=== PATIENT | male | born 1970 | race Caucasian/White ===

== ENCOUNTER 2017-03-01 20:43 | Inpatient (IN) ==
[2017-03-01 21:29] LABS: Basophils # 0.1 K/mcL (0.0-0.2); Basophils % 0.4 %; Eosinophils % 0.1 %; Hematocrit 44.9 % (37.5-50.1); Hemoglobin 14.7 g/dL (12.9-16.9); Immature Granulocytes % 0.3 % (0-4); Lymphocytes # 1.5 K/mcL (0.6-4.6); Lymphocytes % 10.8 %; Mean Corpuscular HGB Conc 32.7 g/dL (31.6-35.5); Mean Corpuscular Volume 88.6 fL (83.0-100.0); Mean Platelet Volume 8.6 fL (9.4-12.4); Monocytes # 1.3 K/mcL (0.0-1.3); Monocytes % 9.3 %; Neutrophils # 10.6 K/mcL (1.6-8.9); Platelet Count 270 K/mcL (140-400); Red Blood Count 5.07 M/mcL (4.19-5.50); Red Cell Distribution Width 13.1 % (11.5-14.5); Segmented Neutrophils % 79.1 %
[2017-03-01 21:38] LABS: BUN/Creatinine Ratio 17 (6-26); Blood Urea Nitrogen 16 mg/dL (8-26); Calcium 9.6 mg/dL (8.6-10.8); Carbon Dioxide 23 mEq/L (19-29); Chloride 105 mEq/L (98-109); Glucose 105 mg/dL (70-99); Osmolality,Calculated 286 (280-300); Potassium 4.4 mEq/L (3.5-4.5); Sodium 137 mEq/L (136-145); eGFR For African Americans > 60 (> 60); eGFR For Non-African Americans > 60 (> 60)
[2017-03-01] MEDS ORDERED: Ipratropium/Albuterol Neb 3 ML IH ONE ×2 (22:38→23:15)
[2017-03-01] MEDS ORDERED: Ipratropium/Albuterol Neb 3 ML ONE (23:12)
--- NOTE | 2017-03-01 23:16 | Emergency Department Note ---
Disposition Clinical Impression: Acute exacerbation of chronic obstructive airways disease Disposition: Still a Patient Condition: Good Referrals: Emely Zamora DO [Primary Care Provider] - Forms: ED Satisfaction Letter General Adult HPI - General Chief complaint: ED Shortness of Breath/Dyspnea Stated complaint: "SOB" Time Seen by Provider: 03/01/17 22:07 Source: patient Mode of arrival: ambulatory Limitations: no limitations Nursing Notes Reviewed: Yes Vital Signs Reviewed: Yes - History of Present Illness HPI Narrative: 47-year-old male with past medical history of COPD presenting to the emergency department with chief complaint of shortness of breath. He states last night he started having increased shortness of breath and cough. As significant kyphosis of the thoracic spine. He states he uses albuterol inhaler at home but that did not help much. He denies fevers, chest pain. No sick contacts. Patient has had congestion, productive cough, and increased shortness of breath since last evening. Pain Scale: 6 - Related Data Previous Rx's Medication Instructions Recorded Ipratropium/Albuterol Neb [Duoneb] 3 ml IH Q4HR PRN #20 vial.neb 04/05/16 Levofloxacin [Levaquin] 750 mg PO DAILY #6 tablet 04/05/16 predniSONE [PredniSONE] 60 mg PO ONCE #12 tablet 04/05/16 Allergies Allergy/AdvReac Type Severity Reaction Status Date / Time No Known Allergies Allergy Verified 03/01/17 20:51 All systems ED: reviewed and negative except as stated. Constitutional: Denies: fever, chills Eyes: Reports: as per HPI ENT ED: Reports: as per HPI Cardiovascular: Denies: chest pain, palpitations Respiratory: Reports: cough, dyspnea, sputum production. Denies: wheezes Gastrointestinal: Denies: abdominal pain, nausea, vomiting Genitourinary: Reports: as per HPI Musculoskeletal: Reports: as per HPI Integumentary: Reports: as per HPI Neurological: Denies: weakness, numbness, paresthesias Psychiatric: Reports: as per HPI Endocrine: Reports: as per HPI Hematological/Lymphatic: Reports: as per HPI Allergic/Immunologic: Reports: as per HPI Past Medical History - Past Medical History Attestation: Yes The following information was validated with the patient. Medical history: Reports: COPD, hyperlipidemia, hypertension Psychiatric history: Reports: no psych history - Social History Smoking Status: Current every day smoker Alcohol use: Reports: none Drug use: Reports: none Physical Exam - General Limitations: no limitations General appearance: alert, in no apparent distress - Head Head exam: atraumatic, normocephalic - Eye Eye exam: Present: normal appearance - Chest Chest inspection: Present: normal inspection, symmetric chest wall rise. Absent : tenderness - Respiratory Respiratory exam: Present: other (Rhonchi noted bilaterally) - Cardiovascular Cardiovascular exam: Present: regular rate, normal heart sounds - Abdominal Exam Abdominal exam: Present: soft, Non-Tender - Extremities Exam Extremities exam: Present: normal inspection, full ROM - Back Exam Back exam: Present: other (severe kyphosis) - Neurological Exam Neurological exam: Present: alert, oriented X3 - Psychiatric Psychiatric exam: Present: normal affect, normal mood - Skin Skin exam: Present: warm, intact Course Course Narrative: 47-year-old male presenting to the emergency Department for chief complaint of shortness of breath. He states it started last night. He has a history of COPD. He also has severe kyphosis noted on exam with possible respiratory compromise. After 3 DuoNeb's patient states he feels better but oxygen saturations have dropped to 88%. Patient with stable oxygen saturations while on 2 L of nasal cannula. Patient does not wear oxygen at home. We will complete albuterol nebulizer treatments at this time and reevaluate patient to determine admission versus discharge. Vital Signs Temperature 99.4 F 03/01/17 20:47 Pulse Rate 194 03/01/17 20:47 Respiratory Rate 16 03/01/17 20:47 Blood Pressure 124/78 03/01/17 20:47 O2 Sat by Pulse Oximetry 92 03/01/17 20:47 Temperature 99.4 F 03/01/17 20:47 Pulse Rate 84 03/01/17 22:44 Respiratory Rate 18 03/01/17 23:18 Blood Pressure 128/85 03/01/17 22:44 O2 Sat by Pulse Oximetry 95 03/01/17 23:18 Oxygen Delivery Oxygen Delivery Nasal Cannula Medical Decision Making - Medical Records Medical records reviewed: Yes I reviewed the patient's medical records. - Lab Data Result diagrams: 03/01/17 21:13 03/01/17 21:13 Lab Results 03/01/17 03/01/17 03/01/17 Range/Units 21:13 21:13 21:13 WBC 13.4 H (4.3-11.1) K/mcL RBC 5.07 (4.19-5.50) M/mcL Hgb 14.7 (12.9-16.9) g/dL Hct 44.9 (37.5-50.1) % MCV 88.6 (83.0-100.0) fL MCH 29.0 (28.0-33.3) pg MCHC 32.7 (31.6-35.5) g/dL RDW 13.1 (11.5-14.5) % Plt Count 270 (140-400) K/mcL MPV 8.6 L (9.4-12.4) fL Immature Gran % 0.3 (0-4) % Seg Neutrophils % 79.1 % Lymphocytes % 10.8 % Monocytes % 9.3 % Eosinophils % 0.1 % Basophils % 0.4 % Neutrophils # 10.6 H (1.6-8.9) K/mcL Lymphocytes # 1.5 (0.6-4.6) K/mcL Monocytes # 1.3 (0.0-1.3) K/mcL Eosinophils # 0.0 (0.0-0.6) K/mcL Basophils # 0.1 (0.0-0.2) K/mcL Sodium 137 (136-145) mEq/L Potassium 4.4 (3.5-4.5) mEq/L Chloride 105 (98-109) mEq/L Carbon Dioxide 23 (19-29) mEq/L BUN 16 (8-26) mg/dL Creatinine 0.94 (0.72-1.25) mg/dL Est GFR ( Amer) > 60 (> 60) Est GFR (Non-Af Amer) > 60 (> 60) BUN/Creatinine Ratio 17 (6-26) Glucose 105 H (70-99) mg/dL Calculated Osmolality 286 (280-300) Calcium 9.6 (8.6-10.8) mg/dL Troponin I 0.01 (0-0.03) ng/mL - Radiology Data Radiology results reviewed: Yes I reviewed the patient's radiology results. Attestation Statement - Attestation Attestation: I examined this patient and my medical decision-making was reviewed with the Resident Physician. I agree with the documented findings, disposition and treatment plan as described except to the extent set forth below. Minimal improvement after steroids, 3 duonebs, 3 albuterol with 3 more albuterol running. No pneumonia on imaging. Sats 92-94% on supplemental O2, not on O2 at home. Hospitalist accepted for admission.
[2017-03-02] MEDS ORDERED: Albuterol 2.5 MG/3 ML NEBULIZER IH STA ×2 (00:04→00:15)
[2017-03-02] MEDS ORDERED: predniSONE 20 MG TABLET PO STA (00:04)
[2017-03-02] MEDS ORDERED: levoFLOXacin 500 MG TABLET PO STA (01:34)
--- NOTE | 2017-03-02 02:33 | Event Note ---
Date of Encounter: 03/02/17 Time of Encounter: 02:32 Patient seen and examined with medical laboratory scientist. Patient with history of COPD not on home multiple presents with 2 days of increasing shortness of breath. Acute COPD exacerbation. He is requiring 4 L of oxygen nasally. No pneumonia on x-ray. Inpatient admission. Patient is full code
--- NOTE | 2017-03-02 04:06 | Internal Med History&Physical ---
Date of Encounter: 03/02/17 Time of Encounter: 01:45 Assessment and Plan (1) Cough Current visit: Yes Status: Acute Patient has a nonproductive cough. -He feels as though he has mucus caught in his throat, unable to bring it up. -He develops chest pain with this cough. -Mucinex has been ordered. -He has also been started on azithromycin 500 mg IV (2) Acute exacerbation of chronic obstructive airways disease Current visit: Yes Status: Acute Patient presented with shortness of breath and an O2 sat of 92. -CXR shows no signs of an acute process -Continue on oxygen, 4 liters. -Prenisone, 40 mg Q6 hr -Duonebs q4hr (3) Leukocytosis Current visit: Yes Status: Acute Patient presented with an elevated white count of 13.4. -Started on Azithromycin 500 mg IV Qualifiers: Qualified Code(s): D72.829 - Elevated white blood cell count, unspecified (4) Tobacco abuse Current visit: Yes Status: Acute Patient smokes one half pack of cigarettes per day. -Previously smoked 2 packs per day. -Currently on Chantix. Internal Medicine - H&P: HPI Admitted From: Home History of present illness: Mr. Rasmussen is a 47 year old male who was seen and examined at bedside this morning. Patient presents to the emergency department with chief complaint of shortness of breath of 2 days duration. Patient states that 2 days ago, he began feeling short of breath and developed a nonproductive cough, and that his condition has progressively worsened. Patient denied having any fevers or chest pain, and has not had any sick contacts. Patient does however have a pain in his chest when he coughs very hard. He admits to being a smoker. He currently smokes one half pack per day. He is currently on Chantix, and is trying to cut back. He had previously been smoking 2 packs per day. On admission to the hospital, patient's vital signs are as follows: Temperature was 99.4, pulse was 194, respiratory rate was 16, blood pressure was 124/78, and O2 saturation was 92. Patient was placed on 4 L of oxygen, and his O2 saturation increased to 95. Patient's pulse decreased to 84. He has been given several treatments of DuoNeb's, and these have been effective for the patient's condition. Patient does have an elevated white count at 13.4. Chest x-ray was performed, did not show any acute findings. Chest x-ray did reveal hyperinflation and scarring, as well as a calcified granuloma in the right middle lung field. EKG was ordered as well. Patient is currently in no distress, and states that he does feel slightly better. He is still short of breath and is still shaking, and does have a nonproductive cough. Past Med Surg Social Fam HX - Past Medical History Medical history: COPD, hyperlipidemia, hypertension Psychiatric history: no psych history - Social History Smoking Status: Current every day smoker Packs per day: 0.5 Smokeless Tobacco Status: No Alcohol use: none Drug use: none Internal Medicine - H&P: Meds Ipratropium/Albuterol Neb [Duoneb] 3 ml IH Q4HR PRN #20 vial.neb 04/05/16 [Rx] Levofloxacin [Levaquin] 750 mg PO DAILY #6 tablet 04/05/16 [Rx] predniSONE [PredniSONE] 60 mg PO ONCE #12 tablet 04/05/16 [Rx] 3 Allergy/AdvReac Type Severity Reaction Status Date / Time No Known Allergies Allergy Verified 03/01/17 20:51 All Systems PM: A 10-system review of systems was performed and is negative for pertinent findings except as documented above in the HPI. - Constitutional Vitals: Temp Pulse Resp BP Pulse Ox 99.1 F 130 26 111/66 93 03/02/17 02:52 03/02/17 02:52 03/02/17 02:52 03/02/17 02:52 03/02/17 02:52 - Respiratory Respiratory exam: Present: rales, respiratory distress, rhonchi, wheezes - Cardiovascular Cardiovascular exam: Present: RRR, +S1, +S2. Absent: diastolic murmur, gallop, rubs, systolic murmur Internal Med - H&P Results - Labs CBC & Chem 7: 03/01/17 21:13 03/01/17 21:13
[2017-03-02] MEDS: Ipratropium/Albuterol Neb 3 ML IH SCH ×6 (04:44→23:34)
[2017-03-02] MEDS: Azithromycin 500 MG in D5% in Water 250 ML IVPB SCH (04:46)
[2017-03-02] MEDS: methylPREDNISolone 125 MG/2 ML VIAL IVP SCH ×4 (05:55→23:59)
[2017-03-02] MEDS ORDERED: predniSONE 20 MG TABLET PO SCH (08:00)
[2017-03-02] MEDS: *HR* Heparin 5,000 UNIT/ML VIAL SQ SCH ×2 (15:08→20:48)
--- NOTE | 2017-03-02 18:57 | Electrocardiograph Report ---
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
--- NOTE | 2017-03-02 19:35 | Internal Med Progress Note ---
Date of Encounter: 03/02/17 Time of Encounter: 14:00 - Assessment and plan (1) Acute exacerbation of chronic obstructive airways disease Current Visit: Yes Status: Acute Assessment and plan: Continue Prednisone. O2 supplementation, weaning. (2) Tobacco abuse Current Visit: Yes Status: Acute Assessment and plan: Discussed cessation w patient - Subjective Interval history: Feeling significantly better. Still on O2 which he does not require at home. Denies cp, n/v, diaphoresis, fevers/chills. - Constitutional Vitals: Temp Pulse Resp BP Pulse Ox 98.0 F 93 16 118/76 93 03/02/17 18:55 03/02/17 18:55 03/02/17 18:55 03/02/17 18:55 03/02/17 18:55 General appearance: Present: A&O X 3, no acute distress, answers questions appropriately - Head Head exam: Present: atraumatic, normocephalic - Respiratory Respiratory exam: Present: decreased breath sounds, wheezes. Absent: accessory muscle use, prolonged expiratory phase, rales - Cardiovascular Cardiovascular exam: Present: RRR, +S1, +S2. Absent: diastolic murmur, gallop, rubs, systolic murmur - Extremities Exam Extremities exam: Present: warm, radial pulses palpable and symmetrical. Absent : calf tenderness, cyanotic, pedal edema Internal Medicine: Result - Labs CBC & Chem 7: 03/01/17 21:13 03/01/17 21:13 Consult Discharge Plan - Plan Referrals: Emely Zamora DO [Primary Care Provider] -
[2017-03-03] MEDS: Ipratropium/Albuterol Neb 3 ML IH SCH ×6 (03:08→23:12)
[2017-03-03] MEDS: Azithromycin 500 MG in D5% in Water 250 ML IVPB SCH (04:18)
[2017-03-03 05:00] LABS: Basophils % 0.1 %; Hematocrit 40.8 % (37.5-50.1); Hemoglobin 13.6 g/dL (12.9-16.9); Immature Granulocytes % 0.8 % (0-4); Lymphocytes # 1.4 K/mcL (0.6-4.6); Mean Corpuscular HGB Conc 33.3 g/dL (31.6-35.5); Mean Corpuscular Hemoglobin 28.7 pg (28.0-33.3); Mean Corpuscular Volume 86.1 fL (83.0-100.0); Mean Platelet Volume 8.8 fL (9.4-12.4); Monocytes # 0.7 K/mcL (0.0-1.3); Monocytes % 4.1 %; Neutrophils # 13.7 K/mcL (1.6-8.9); Platelet Count 286 K/mcL (140-400); Red Blood Count 4.74 M/mcL (4.19-5.50); Red Cell Distribution Width 12.8 % (11.5-14.5)
[2017-03-03 05:18] LABS: BUN/Creatinine Ratio 20 (6-26); Blood Urea Nitrogen 15 mg/dL (8-26); Calcium 9.3 mg/dL (8.6-10.8); Carbon Dioxide 19 mEq/L (19-29); Chloride 108 mEq/L (98-109); Glucose 196 mg/dL (70-99); Osmolality,Calculated 290 (280-300); Potassium 3.7 mEq/L (3.5-4.5); Sodium 137 mEq/L (136-145); eGFR For African Americans > 60 (> 60); eGFR For Non-African Americans > 60 (> 60)
[2017-03-03] MEDS: methylPREDNISolone 125 MG/2 ML VIAL IVP SCH ×4 (05:48→23:27)
[2017-03-03] MEDS: *HR* Heparin 5,000 UNIT/ML VIAL SQ SCH ×3 (05:48→20:27)
--- NOTE | 2017-03-03 19:09 | Internal Med Progress Note ---
Date of Encounter: 03/03/17 Time of Encounter: 09:30 - Assessment and plan (1) Acute exacerbation of chronic obstructive airways disease Current Visit: Yes Status: Acute Assessment and plan: Patient clinically looked well, but with ambulating he was noted to desaturate despite adequate management. He currently qualifies for home O2. is arranging for this. Anticipate discharge tomorrow. (2) Oxygen desaturation Current Visit: Yes Status: Acute Assessment and plan: as above (3) Tobacco abuse Current Visit: Yes Status: Acute Assessment and plan: Re-discussed cessation with patient today. He noted that he is actively trying to quit and discusses with his primary care physician. - Subjective Interval history: Feeling significantly better. Still on O2 which he did not require at prior to admission. Denies cp, n/v, diaphoresis, fevers/chills. - Constitutional Vitals: Temp Pulse Resp BP Pulse Ox 98.1 F 74 14 119/72 97 03/03/17 18:32 03/03/17 18:32 03/03/17 18:32 03/03/17 18:32 03/03/17 18:32 General appearance: Present: A&O X 3, no acute distress, answers questions appropriately - Respiratory Respiratory exam: Present: wheezes. Absent: accessory muscle use, chest wall tenderness, decreased breath sounds, prolonged expiratory phase, rales - Cardiovascular Cardiovascular exam: Present: RRR, +S1, +S2. Absent: diastolic murmur, gallop, rubs, systolic murmur - Extremities Exam Extremities exam: Present: warm, radial pulses palpable and symmetrical. Absent : calf tenderness, cyanotic, pedal edema Internal Medicine: Result - Labs CBC & Chem 7: 03/03/17 04:39 03/03/17 04:39 Labs: Short CBC 03/03/17 Range/Units 04:39 WBC 16.0 H (4.3-11.1) K/mcL Hgb 13.6 (12.9-16.9) g/dL Hct 40.8 (37.5-50.1) % Plt Count 286 (140-400) K/mcL Neutrophils # 13.7 H (1.6-8.9) K/mcL BMP 03/03/17 04:39 Sodium 137 Potassium 3.7 Chloride 108 Carbon Dioxide 19 BUN 15 Creatinine 0.75 Glucose 196 H Calcium 9.3 Consult Discharge Plan - Plan Referrals: Emely Zamora DO [Primary Care Provider] -
[2017-03-04] MEDS: Ipratropium/Albuterol Neb 3 ML IH SCH ×3 (03:42→11:28)
[2017-03-04 05:11] LABS: Basophils % 0.1 %; Hematocrit 41.5 % (37.5-50.1); Hemoglobin 13.9 g/dL (12.9-16.9); Immature Granulocytes % 0.9 % (0-4); Lymphocytes # 1.9 K/mcL (0.6-4.6); Lymphocytes % 10.8 %; Mean Corpuscular HGB Conc 33.5 g/dL (31.6-35.5); Mean Corpuscular Hemoglobin 28.9 pg (28.0-33.3); Mean Corpuscular Volume 86.3 fL (83.0-100.0); Monocytes # 0.6 K/mcL (0.0-1.3); Monocytes % 3.7 %; Neutrophils # 14.5 K/mcL (1.6-8.9); Platelet Count 322 K/mcL (140-400); Red Blood Count 4.81 M/mcL (4.19-5.50); Red Cell Distribution Width 13.2 % (11.5-14.5); Segmented Neutrophils % 84.5 %
[2017-03-04] MEDS: methylPREDNISolone 125 MG/2 ML VIAL IVP SCH ×2 (05:13→12:04)
[2017-03-04] MEDS: *HR* Heparin 5,000 UNIT/ML VIAL SQ SCH ×2 (05:13→12:04)
[2017-03-04] MEDS: Azithromycin 500 MG in D5% in Water 250 ML IVPB SCH (05:13)
[2017-03-04 05:26] LABS: BUN/Creatinine Ratio 19 (6-26); Blood Urea Nitrogen 14 mg/dL (8-26); Calcium 9.2 mg/dL (8.6-10.8); Carbon Dioxide 21 mEq/L (19-29); Chloride 107 mEq/L (98-109); Glucose 162 mg/dL (70-99); Osmolality,Calculated 290 (280-300); Potassium 3.7 mEq/L (3.5-4.5); Sodium 138 mEq/L (136-145); eGFR For African Americans > 60 (> 60); eGFR For Non-African Americans > 60 (> 60)
[2017-03-04 11:38] VITALS: BP 119/75
--- NOTE | 2017-03-04 11:38 | Discharge Summary ---
Date of Encounter: 03/04/17 Time of Encounter: 11:37 - Discharge Diagnosis (1) Acute exacerbation of chronic obstructive airways disease Priority: Primary Status: Acute (2) Oxygen desaturation Priority: Secondary Status: Acute (3) Tobacco abuse Priority: Secondary Status: Acute - Discharge Medications Home Medications: Atorvastatin [Lipitor] 40 mg PO HS 03/02/17 [History] Fluticasone/Vilanterol [Breo Ellipta 100-25 Mcg INH] 1 puff IH DAILY 03/02/17 [ History] Montelukast [Singulair] 10 mg PO DAILY 03/02/17 [History] Allergies/Adverse Reactions: 3 Allergy/AdvReac Type Severity Reaction Status Date / Time No Known Allergies Allergy Verified 03/01/17 20:51 Date of admission: Patient presents to the emergency department with chief complaint of shortness of breath of 2 days duration. Patient states that 2 days ago, he began feeling short of breath and developed a nonproductive cough, and that his condition has progressively worsened. Patient denied having any fevers or chest pain, and has not had any sick contacts. Patient does however have a pain in his chest when he coughs very hard. He admits to being a smoker. He currently smokes one half pack per day. He is currently on Chantix, and is trying to cut back. He had previously been smoking 2 packs per day. On admission to the hospital, patient's vital signs are as follows: Temperature was 99.4, pulse was 194, respiratory rate was 16, blood pressure was 124/78, and O2 saturation was 92. Patient was placed on 4 L of oxygen, and his O2 saturation increased to 95. Patient's pulse decreased to 84. He has been given several treatments of DuoNeb 's, and these have been effective for the patient's condition. Patient does have an elevated white count at 13.4. Chest x-ray was performed, did not show any acute findings. Chest x-ray did reveal hyperinflation and scarring, as well as a calcified granuloma in the right middle lung field. EKG was ordered as well. Patient is currently in no distress, and states that he does feel slightly better. He is still short of breath and is still shaking, and does have a nonproductive cough. Primary care physician: Emely Zamora DO Consults: 03/03/17 11:57 Consult to Paint Formulator [CONS] Routine Reason for SW Consult: oxygen/ dishcarge planning Discharging clinician: Rip Cruz - Patient Status Disposition: Home, Self-Care Condition: Good Functional capacity at discharge: uses cane/walker Overall status at discharge: patient is progressing back to baseline - Discharge Instructions Follow Up With: Emely Zamora DO [Primary Care Provider] - Interval History: Patient presents to the emergency department with chief complaint of shortness of breath of 2 days duration. Patient states that 2 days ago, he began feeling short of breath and developed a nonproductive cough, and that his condition has progressively worsened. Patient denied having any fevers or chest pain, and has not had any sick contacts. Patient does however have a pain in his chest when he coughs very hard. He admits to being a smoker. He currently smokes one half pack per day. He is currently on Chantix, and is trying to cut back. He had previously been smoking 2 packs per day. On admission to the hospital, patient's vital signs are as follows: Temperature was 99.4, pulse was 194, respiratory rate was 16, blood pressure was 124/78, and O2 saturation was 92. Patient was placed on 4 L of oxygen, and his O2 saturation increased to 95. Patient's pulse decreased to 84. He has been given several treatments of DuoNeb 's, and these have been effective for the patient's condition. Patient does have an elevated white count at 13.4. Chest x-ray was performed, did not show any acute findings. Chest x-ray did reveal hyperinflation and scarring, as well as a calcified granuloma in the right middle lung field. EKG was ordered as well. Patient is currently in no distress, and states that he does feel slightly better. He is still short of breath and is still shaking, and does have a nonproductive cough. Hospital course: Vision was started on Solu-Medrol and given DuoNeb scheduled and when necessary. Again to feel immediate relief. However after a day of treatment patient was unable to be weaned from oxygen. Her day to his able to wean oxygen off at rest, but qualified for home oxygen as she desats with exertion. He was discharged home in stable condition, and prescribed for home O2. He was discharged home to complete a course of azithromycin, and to complete a prednisone burst. Time spent discussing smoking cessation with patient: 3 to 10 minutes - Time Spent with Patient Total time spent providing and/or coordinating discharge services: Less than 30 minutes - Constitutional Vitals: Temp Pulse Resp BP Pulse Ox 97.5 F L 74 18 113/77 92 03/04/17 07:24 03/04/17 07:24 03/04/17 08:01 03/04/17 07:24 03/04/17 08:01 General appearance: Present: A&O X 3, no acute distress, answers questions appropriately - Respiratory Respiratory exam: Present: wheezes (aeration and wheezing improved). Absent: accessory muscle use, chest wall tenderness, decreased breath sounds, prolonged expiratory phase, rales, respiratory distress - Cardiovascular Cardiovascular exam: Present: RRR, +S1, +S2. Absent: diastolic murmur, gallop, rubs, systolic murmur
== END 2017-03-04 14:55 | disposition home or self-care (01) | DRG 140 ==
LOC: 3BNU 20:43 → EMEROO 20:43 → SUATTDRO 03-02 01:45 → 3BNU 03-02 02:40
PROVIDERS: ADMIT Hospitalist; ATTEND Student in an Organized Health Care Education/Training Program